=== PATIENT | female | born 1940 | race Caucasian/White ===

== ENCOUNTER 2017-07-05 11:15 | Outpatient (RCR) | payer OTHER | END 2017-07-09 | disposition home or self-care (01) | LOC: PTY 11:15 | DX: M25.561 Pain in right knee (principal); M13.851 Other specified arthritis, right hip; Z85.3 Personal history of malignant neoplasm of breast; F32.9 Major depressive disorder, single episode, unspecified; F41.9 Anxiety disorder, unspecified | CPT/HCPCS: 97110; 97162; G0283 ==

== ENCOUNTER 2017-08-01 10:00 | Outpatient (RCR) | payer OTHER | END 2017-08-09 | disposition home or self-care (01) | LOC: PTY 10:00 | DX: M25.561 Pain in right knee (principal); Z85.3 Personal history of malignant neoplasm of breast; F32.9 Major depressive disorder, single episode, unspecified; F41.9 Anxiety disorder, unspecified; M19.90 Unspecified osteoarthritis, unspecified site; G89.29 Other chronic pain; M25.551 Pain in right hip | CPT/HCPCS: 97110; G0283 ==

== ENCOUNTER 2017-09-02 13:00 | Outpatient (RCR) | payer OTHER | END 2017-09-08 | disposition home or self-care (01) | LOC: PTY 13:00 | DX: M25.561 Pain in right knee (principal); G89.29 Other chronic pain; M25.551 Pain in right hip | CPT/HCPCS: 97110; G0283 ==

== ENCOUNTER 2017-09-21 13:45 | Outpatient (RCR) | payer OTHER | END 2017-10-09 | disposition home or self-care (01) | LOC: PTY 13:45 | DX: M25.561 Pain in right knee (principal); G89.29 Other chronic pain; M25.551 Pain in right hip ==